=== PATIENT | male | born 1975 | race African-American/Black ===

== ENCOUNTER 2017-02-11 10:55 | Inpatient (IN) | payer OTHER ==
[2017-02-11 12:02] VITALS: BMI 29.7
--- NOTE | 2017-02-11 13:52 | HP ---
CIWA Score - CIWA Score Nausea/Vomitin-Mild Nausea/No Vomiting Muscle Tremors: 4-Moderate,w/Arms Extend Anxiety: 4-Mod. Anxious/Guarded Agitation: 4-Moderately Restless Paroxysmal Sweats: 3 Orientation: 0-Oriented Tacttile Disturbances: 0-None Auditory Disturbances: 0-None Visual Disturbances: 0-None Headache: 0-None Present CIWA-Ar Total Score: 16 Admission ROS BHS - HPI Chief Complaint: Withdrawal sx. Allergies/Adverse Reactions: Allergies Allergy/AdvReac Type Severity Reaction Status Date / Time No Known Allergies Allergy Verified 02/11/17 11:29 History of Present Illness: 41 y/o man with a long hx. of alcoholism is admitted for detox. Pt. has been in previous detox,denies significant sobriety. Exam Limitations: No Limitations - Ebola screening Have you traveled outside of the country in the last 21 days: No Have you had contact with anyone from an Ebola affected area: No Have you been sick,other than usual withdrawal symptoms: No Do you have a fever: No - Review of Systems Constitutional: Diaphoresis EENT: reports: No Symptoms Reported Respiratory: reports: No Symptoms reported Cardiac: reports: No Symptoms Reported GI: reports: Nausea, Abdominal cramping : reports: No Symptoms Reported Musculoskeletal: reports: Joint Pain Integumentary: reports: Sweating Neuro: reports: Tremors Endocrine: reports: No Symptoms Reported Hematology: reports: No Symptoms Reported Psychiatric: reports: No Sypmtoms Reported Other Systems: Reviewed and Negative Patient History - Patient Medical History Hx Anemia: No Hx Asthma: No Hx Chronic Obstructive Pulmonary Disease (COPD): No Hx Cancer: No Hx Cardiac Disorders: No Hx Congestive Heart Failure: No Hx Hypertension: Yes (nifedepine 30mg,asa 81mg) Hx Hypercholesterolemia: No Hx Pacemaker: No HX Cerebrovascular Accident: No Hx Seizures: No Hx Dementia: No Hx Diabetes: No Hx Gastrointestinal Disorders: No Hx Liver Disease: No Hx Genitourinary Disorders: No Hx Sexually Transmitted Disorders: No Hx Renal Disease (ESRD): No Hx Thyroid Disease: No Hx Human Immunodeficiency Virus (HIV): No Hx Hepatitis C: No Hx Depression: Yes Hx Suicide Attempt: No Hx Bipolar Disorder: No Hx Schizophrenia: No - Patient Surgical History Past Surgical History: Yes Hx Neurologic Surgery: Yes (brain aneurysm sx.) Hx Cataract Extraction: No Hx Cardiac Surgery: No Hx Lung Surgery: No Hx Breast Surgery: No Hx Breast Biopsy: No Hx Abdominal Surgery: No Hx Appendectomy: No Hx Cholecystectomy: No Hx Genitourinary Surgery: No Hx Section: No Hx Orthopedic Surgery: No Other Surgical History: CRANIAL PLASTY Anesthesia Reaction: No - PPD History Previous Implant?: Yes Documented Results: Positive w/o proof PPD to be Administered?: No - Smoking Cessation Smoking history: Current every day smoker Have you smoked in the past 12 months: Yes Aproximately how many cigarettes per day: 5 Hx Chewing Tobacco Use: No Initiated information on smoking cessation: Yes 'Breaking Loose' booklet given: 02/11/17 - Substance & Tx. History Hx Alcohol Use: Yes Hx Substance Use: Yes Substance Use Type: Alcohol, Cocaine Hx Substance Use Treatment: Yes ([facility] in 06/2016) - Substances Abused Alcohol Route: Oral Frequency: Daily Amount used: LIQUOR- 3 PINTS, BEER- 1 SIX PACK Age of first use: 17 Date of Last Use: 02/10/17 Crack Route: Smoking Frequency: Daily Amount used: $60 Age of first use: 33 Date of Last Use: 02/10/17 Family Disease History - Family Disease History Family Disease History: Diabetes: Mother (HTN,Breast), Heart Disease: Mother, CA : Mother, Other: Father (CVA) Admission Physical Exam S - Vital Signs Vital Signs: Vital Signs - 24 hr 02/11/17 11:57 Temperature 96.8 F L Pulse Rate 72 Respiratory 20 Rate Blood Pressure 141/95 - Physical General Appearance: Yes: Tremorous, Irritable, Sweating, Anxious HEENTM: Yes: Within Normal Limits Respiratory: Yes: Chest Non-Tender, Lungs Clear, Normal Breath Sounds Neck: Yes: Supple Breast: Yes: Breast Exam Deferred Cardiology: Yes: Regular Rhythm, Regular Rate, S1, S2 Abdominal: Yes: Normal Bowel Sounds, Non Tender, Soft Genitourinary: Yes: Within Normal Limits Back: Yes: Within Normal Limits Musculoskeletal: Yes: Within Normal Limits Extremities: Yes: Tremors Neurological: Yes: Fully Oriented, Alert Integumentary: Yes: Diaphoresis Lymphatic: Yes: Within Normal Limits - Diagnostic (1) Alcohol dependence with uncomplicated withdrawal Current Visit: Yes Status: Acute (2) Cannabis dependence, uncomplicated Current Visit: Yes Status: Acute (3) Cocaine dependence, uncomplicated Current Visit: Yes Status: Acute Cleared for Admission [facility] - Detox or Rehab [facility] Level of Care: Medically Managed Detox Regimen/Protocol: Librium [facility] Breath Alcohol Content Breath Alcohol Content: 0 Urine Drug Screen - Results Drug Screen Negative: No Urine Drug Screen Results: HEMA-Cocaine, BZO-Benzodiazepines
[2017-02-11] MEDS ORDERED: MENTHOL/PHENOL 1 EACH UD MM PRN (13:58)
[2017-02-11] MEDS ORDERED: guaiFENesin/D-METHORPHAN HB 10 ML UNIT-DOSE CUPS PO PRN (13:58)
[2017-02-11] MEDS ORDERED: NICOTINE POLACRILEX 2 MG GUM BC PRN (13:58)
[2017-02-11] MEDS ORDERED: MAGNESIUM CITRATE 300 ML BOTTLE PO PRN (13:58)
[2017-02-11] MEDS ORDERED: MAGNESIUM HYDROX 2400MG/30ML ORAL SUSPENSION 30 ML CUP PO PRN (13:58)
[2017-02-11] MEDS ORDERED: chlordiazePOXIDE HCL 25 MG CAPSULE PO PRN (13:58)
[2017-02-11] MEDS ORDERED: chlordiazePOXIDE HCL 25 MG CAPSULE PO ONE (13:58)
[2017-02-11] MEDS ORDERED: MAG HYDROX/AL HYDROX/SIMETH 30 ML UNIT-DOSE CUP PO PRN (13:58)
[2017-02-11] MEDS ORDERED: P-EPHED 60MG/TRIPROLIDI 2.5MG TABLET PO PRN (13:58)
[2017-02-11] MEDS ORDERED: ACETAMINOPHEN 325 MG TABLET (FP) PO PRN (13:58)
[2017-02-11] MEDS ORDERED: diphenhydrAMINE HCL 50 MG CAPSULE PO PRN (13:58)
[2017-02-11] MEDS ORDERED: LOPERAMIDE HCL 2 MG CAPSULE PO PRN (13:58)
[2017-02-11] MEDS: IBUPROFEN 400 MG TABLET (FP) PO PRN ×2 (15:31→22:43)
[2017-02-11] MEDS: NIFEdipine E.R. 30 MG TABLET (FP) PO SCH (15:31)
[2017-02-11] MEDS: NICOTINE 14 MG/24 HOURS TOPICAL PATCH TD SCH (15:32)
[2017-02-11] MEDS: chlordiazePOXIDE HCL 25 MG CAPSULE PO SCH ×2 (17:26→22:42)
[2017-02-11 18:17] LABS: URINE APPEARANCE CLEAR; URINE BILIRUBIN NEGATIVE (NEGATIVE); URINE BLOOD NEGATIVE (NEGATIVE); URINE COLOR LTYELLOW; URINE GLUCOSE (UA) NEGATIVE (NEGATIVE); URINE KETONE NEGATIVE (NEGATIVE); URINE LEUK ESTERASE NEGATIVE (NEGATIVE); URINE NITRITE NEGATIVE (NEGATIVE); URINE PROTEIN NEGATIVE (NEGATIVE); URINE UROBILINOGEN NEGATIVE mg/dL (0.2-1.0)
[2017-02-11] MEDS: THIAMINE HCL 100 MG TABLET (FP) PO SCH (22:42)
[2017-02-11] MEDS: hydrOXYzine PAMOATE 50 MG CAPSULE (FP) PO PRN (22:43)
[2017-02-12] MEDS: IBUPROFEN 400 MG TABLET (FP) PO PRN (05:50)
[2017-02-12] MEDS: chlordiazePOXIDE HCL 25 MG CAPSULE PO SCH ×4 (05:50→22:50)
[2017-02-12 10:10] LABS: MCH 29.2 pg (25.7-33.7); MCHC 32.9 g/dl (32.0-35.9); MEAN CELL VOLUME 88.8 fl (80-96); MEAN PLT VOLUME 8.2 fl (7.5-11.1); PLATELET COUNT 311 K/MM3 (134-434); RDW 14.7 % (11.9-15.9); WHITE BLOOD COUNT 4.1 K/mm3 (4.0-10.0)
[2017-02-12 10:33] LABS: ALBUMIN 3.2 g/dl (3.4-5.0); ALK PHOS 72 U/L (45-117); ANION GAP 8 (8-16); BILIRUBIN,TOTAL 0.3 mg/dL (0.2-1.0); CALCIUM 8.6 mg/dL (8.5-10.1); CO2 27 mmol/L (21-32); CREATININE 0.9 mg/dL (0.7-1.3); GLUCOSE,RANDOM 104 mg/dL (74-106); SGOT/AST 28 U/L (15-37); SGPT/ALT 35 U/L (12-78); TOT PROT 6.8 g/dl (6.4-8.2)
[2017-02-12] MEDS: NIFEdipine E.R. 30 MG TABLET (FP) PO SCH (10:50)
[2017-02-12] MEDS: PRENATAL VITAMINS W/ FOLIC ACID TABLET (FP) PO SCH (10:50)
[2017-02-12] MEDS: NICOTINE 14 MG/24 HOURS TOPICAL PATCH TD SCH (10:51)
--- NOTE | 2017-02-12 11:37 | PN ---
BHS CIWA - CIWA Score Nausea/Vomitin Muscle Tremors: 4-Moderate,w/Arms Extend Anxiety: 4-Mod. Anxious/Guarded Agitation: 4-Moderately Restless Paroxysmal Sweats: 3 Orientation: 0-Oriented Tacttile Disturbances: 1-Very Mild Itch/Numbness Auditory Disturbances: 0-None Visual Disturbances: 0-None Headache: 1-Very Mild CIWA-Ar Total Score: 20 BHS Progress Note (SOAP) Subjective: nausea, sweats, interrupted sleep, anxiety, tremors Objective: 02/12/17 11:37 Vital Signs - 8 hr 02/12/17 02/12/17 02/12/17 03:43 06:36 09:38 Temperature 97.1 F L 97.5 F L Pulse Rate 79 72 Respiratory 18 18 18 Rate Blood Pressure 148/90 131/77 Laboratory Tests 02/11/17 02/12/17 02/12/17 15:59 07:00 07:00 WBC 4.1 RBC 4.09 Hgb 11.9 Hct 36.3 MCV 88.8 MCH 29.2 MCHC 32.9 RDW 14.7 Plt Count 311 MPV 8.2 Sodium 141 Potassium 3.8 Chloride 106 Carbon Dioxide 27 Anion Gap 8 BUN 13 Creatinine 0.9 Creat Clearance w eGFR > 60 Random Glucose 104 Calcium 8.6 Total Bilirubin 0.3 AST 28 ALT 35 Alkaline Phosphatase 72 Total Protein 6.8 Albumin 3.2 L Urine Color Ltyellow Urine Appearance Clear Urine pH 7.0 Ur Specific [place] 1.020 Urine Protein Negative Urine Glucose (UA) Negative Urine Ketones Negative Urine Blood Negative Urine Nitrite Negative Urine Bilirubin Negative Urine Urobilinogen Negative Ur Leukocyte Esterase Negative Assessment: 02/12/17 11:37 withdrawal sx Plan: cont detox
--- NOTE | 2017-02-12 17:12 | CONSULT ---
[facility] Psychiatric Consult - Data Date of interview: 02/12/17 Admission source: [facility] Identifying data: First admission to [facility] for this 41 y/o [place]-born male seeking detox treatment on for alcohol and cocaine dependence.Patient is single,a father of two,domiciled,unemployed and supported on SSI benefits. Substance Abuse History: Confirmed by patient. Smoking Cessation. Smoking history: Current every day smoker. Have you smoked in the past 12 months: Yes. Aproximately how many cigarettes per day: 5. Hx Chewing Tobacco Use: No. Initiated information on smoking cessation: Yes. 'Breaking Loose' booklet given : 02/11/17. - Substance & Tx. History. Hx Alcohol Use: Yes. Hx Substance Use : Yes. Substance Use Type: Alcohol, Cocaine. Hx Substance Use Treatment: Yes ( [facility] in 06/2016). - Substances Abused. Alcohol. Route: Oral. Frequency: Daily. Amount used: LIQUOR- 3 PINTS, BEER- 1 SIX PACK. Age of first use: 17. Date of Last Use: 02/10/17. Crack. Route: Smoking. Frequency: Daily. Amount used: $60. Age of first use: 33. Date of Last Use: 02/10/17 Medical History: History of neurosurgery for brain aneurysm and cranial plasty.Hypertension. Psychiatric History: Patient admits to one psychiatric hospitalization at a facility in [place].Diagnosed with MDD.Prescribed zoloft 100 mg/day.Dropped out of OPD care " a while back " ,which translates into a two month period of non- adherence.Mr Fontana denies history of suicide attempts. Physical/Sexual Abuse/Trauma History: No history of abuse. Additional Comment: Urine Drug Screen Results: HEMA-Cocaine, BZO- Benzodiazepines.Noted. Mental Status Exam - Mental Status Exam Alert and Oriented to: Time, Place, Person Cognitive Function: Good Patient Appearance: Well Groomed (right hand in a bandage) Mood: Hopeful, Euthymic Affect: Appropriate, Normal Range Patient Behavior: Appropriate (friendly), Cooperative Speech Pattern: Clear, Appropriate (bilingual : creole and citizen of [place] fluent) Voice Loudness: Normal Thought Process: Intact, Goal Oriented Thought Disorder: Not Present Hallucinations: Denies Suicidal Ideation: Denies Homicidal Ideation: Denies Insight/Judgement: Poor Sleep: Well Appetite: Good Muscle strength/Tone: Normal Gait/Station: Normal Psychiatric Findings - Problem List ([place] 1, 2,3) (1) Alcohol dependence with uncomplicated withdrawal Current Visit: Yes Status: Acute (2) Cannabis dependence, uncomplicated Current Visit: Yes Status: Acute (3) Cocaine dependence, uncomplicated Current Visit: Yes Status: Acute (4) Substance induced mood disorder Current Visit: Yes Status: Acute (5) MDD (major depressive disorder) Current Visit: Yes Status: Acute Comment: History.Non compliant with medications. - Initial Treatment Plan Initial Treatment Plan: Psychoeducation.Detoxification in progress.Patient requests to get back on zoloft 100 mg po daily.Ordered.Side effects/benefits discussed with the patient.He agrees with this careplan.Observation.
[2017-02-12] MEDS: THIAMINE HCL 100 MG TABLET (FP) PO SCH (22:50)
[2017-02-12] MEDS: hydrOXYzine PAMOATE 50 MG CAPSULE (FP) PO PRN (22:51)
--- NOTE | 2017-02-12 23:18 | EKG ---
Test Reason : Blood Pressure : / mmHG Vent. Rate : 069 BPM Atrial Rate : 069 BPM P-R Int : 146 ms QRS Dur : 092 ms QT Int : 402 ms P-R-T Axes : 042 015 019 degrees QTc Int : 430 ms NORMAL SINUS RHYTHM MINIMAL VOLTAGE CRITERIA FOR LVH, MAY BE NORMAL VARIANT BORDERLINE ECG NO PREVIOUS ECGS AVAILABLE Confirmed by RENY PRINGLE MD ([id number]) on 02/12/2017 11:17:41 PM Referred By: Confirmed By:RENY PRINGLE MD
[2017-02-13] MEDS: chlordiazePOXIDE HCL 25 MG CAPSULE PO SCH ×2 (06:03→10:36)
[2017-02-13] MEDS: IBUPROFEN 400 MG TABLET (FP) PO PRN ×2 (06:04→17:19)
[2017-02-13] MEDS: PRENATAL VITAMINS W/ FOLIC ACID TABLET (FP) PO SCH (10:36)
[2017-02-13] MEDS: NIFEdipine E.R. 30 MG TABLET (FP) PO SCH (10:36)
[2017-02-13] MEDS: SERTRALINE HCL 50 MG TABLET (FP) PO SCH (10:36)
[2017-02-13] MEDS: NICOTINE 14 MG/24 HOURS TOPICAL PATCH TD SCH (10:36)
--- NOTE | 2017-02-13 13:40 | PN ---
S CIWA - CIWA Score Nausea/Vomitin Muscle Tremors: None Anxiety: 2 Agitation: 2 Paroxysmal Sweats: 3 Orientation: 2-Disoriented Date<2 days Tacttile Disturbances: 2-Mild Itch/Numbness/Burn Auditory Disturbances: 0-None Visual Disturbances: 3-Moderate Sensitivity Headache: 0-None Present CIWA-Ar Total Score: 16 BHS Progress Note (SOAP) Subjective: Sweating, Anxious. Objective: PT. A & O X 2 (DISORIENTED ABOUT DAY /DATE). NO ACUTE DISTRESS. 02/13/17 13:38 Vital Signs Temperature 97.6 F 02/13/17 09:28 Pulse Rate 69 02/13/17 09:28 Respiratory Rate 18 02/13/17 09:28 Blood Pressure 129/82 02/13/17 09:28 O2 Sat by Pulse Oximetry (%) Laboratory Tests 02/11/17 02/12/17 02/12/17 15:59 07:00 07:00 WBC 4.1 RBC 4.09 Hgb 11.9 Hct 36.3 MCV 88.8 MCH 29.2 MCHC 32.9 RDW 14.7 Plt Count 311 MPV 8.2 Sodium 141 Potassium 3.8 Chloride 106 Carbon Dioxide 27 Anion Gap 8 BUN 13 Creatinine 0.9 Creat Clearance w eGFR > 60 Random Glucose 104 Calcium 8.6 Total Bilirubin 0.3 AST 28 ALT 35 Alkaline Phosphatase 72 Total Protein 6.8 Albumin 3.2 L Urine Color Ltyellow Urine Appearance Clear Urine pH 7.0 Ur Specific [place] 1.020 Urine Protein Negative Urine Glucose (UA) Negative Urine Ketones Negative Urine Blood Negative Urine Nitrite Negative Urine Bilirubin Negative Urine Urobilinogen Negative Ur Leukocyte Esterase Negative RPR Titer 02/12/17 07:00 WBC RBC Hgb Hct MCV MCH MCHC RDW Plt Count MPV Sodium Potassium Chloride Carbon Dioxide Anion Gap BUN Creatinine Creat Clearance w eGFR Random Glucose Calcium Total Bilirubin AST ALT Alkaline Phosphatase Total Protein Albumin Urine Color Urine Appearance Urine pH Ur Specific [place] Urine Protein Urine Glucose (UA) Urine Ketones Urine Blood Urine Nitrite Urine Bilirubin Urine Urobilinogen Ur Leukocyte Esterase RPR Titer Nonreactive LABS NOTED. Assessment: 02/13/17 13:39 WITHDRAWAL SYMPTOMS. Plan: CONTINUE DETOX.
[2017-02-13] MEDS: chlordiazePOXIDE 5 MG CAPSULE PO SCH ×2 (17:17→22:41)
[2017-02-13] MEDS: THIAMINE HCL 100 MG TABLET (FP) PO SCH (22:41)
[2017-02-13] MEDS: hydrOXYzine PAMOATE 50 MG CAPSULE (FP) PO PRN (22:42)
[2017-02-14] MEDS: chlordiazePOXIDE 5 MG CAPSULE PO SCH ×2 (06:01→10:36)
[2017-02-14] MEDS: IBUPROFEN 400 MG TABLET (FP) PO PRN (06:03)
[2017-02-14] MEDS: NIFEdipine E.R. 30 MG TABLET (FP) PO SCH (10:36)
[2017-02-14] MEDS: SERTRALINE HCL 50 MG TABLET (FP) PO SCH (10:36)
[2017-02-14] MEDS: NICOTINE 14 MG/24 HOURS TOPICAL PATCH TD SCH (10:36)
[2017-02-14] MEDS: PRENATAL VITAMINS W/ FOLIC ACID TABLET (FP) PO SCH (10:36)
--- NOTE | 2017-02-14 13:49 | PN ---
BHS Progress Note (SOAP) Subjective: Sweating, Body Aches. Objective: PT. A & O X 3, OBSERVED AMBULATING ON UNIT. NO ACUTE DISTRESS. PT. DENIES CHEST PAIN. 02/14/17 13:47 Vital Signs Temperature 97.4 F L 02/14/17 09:57 Pulse Rate 70 02/14/17 09:57 Respiratory Rate 20 02/14/17 09:57 Blood Pressure 134/86 02/14/17 09:57 O2 Sat by Pulse Oximetry (%) Laboratory Tests 02/11/17 02/12/17 02/12/17 15:59 07:00 07:00 WBC 4.1 RBC 4.09 Hgb 11.9 Hct 36.3 MCV 88.8 MCH 29.2 MCHC 32.9 RDW 14.7 Plt Count 311 MPV 8.2 Sodium 141 Potassium 3.8 Chloride 106 Carbon Dioxide 27 Anion Gap 8 BUN 13 Creatinine 0.9 Creat Clearance w eGFR > 60 Random Glucose 104 Calcium 8.6 Total Bilirubin 0.3 AST 28 ALT 35 Alkaline Phosphatase 72 Total Protein 6.8 Albumin 3.2 L Urine Color Ltyellow Urine Appearance Clear Urine pH 7.0 Ur Specific [place] 1.020 Urine Protein Negative Urine Glucose (UA) Negative Urine Ketones Negative Urine Blood Negative Urine Nitrite Negative Urine Bilirubin Negative Urine Urobilinogen Negative Ur Leukocyte Esterase Negative RPR Titer 02/12/17 07:00 WBC RBC Hgb Hct MCV MCH MCHC RDW Plt Count MPV Sodium Potassium Chloride Carbon Dioxide Anion Gap BUN Creatinine Creat Clearance w eGFR Random Glucose Calcium Total Bilirubin AST ALT Alkaline Phosphatase Total Protein Albumin Urine Color Urine Appearance Urine pH Ur Specific [place] Urine Protein Urine Glucose (UA) Urine Ketones Urine Blood Urine Nitrite Urine Bilirubin Urine Urobilinogen Ur Leukocyte Esterase RPR Titer Nonreactive LABS NOTED. Assessment: 02/14/17 13:48 WITHDRAWAL SYMPTOMS. Plan: CONTINUE DETOX.
[2017-02-14] MEDS: chlordiazePOXIDE HCL 10 MG CAPSULE PO SCH ×2 (17:15→22:40)
[2017-02-14] MEDS: THIAMINE HCL 100 MG TABLET (FP) PO SCH (22:40)
[2017-02-14] MEDS: hydrOXYzine PAMOATE 50 MG CAPSULE (FP) PO PRN (22:41)
[2017-02-15] MEDS: chlordiazePOXIDE HCL 10 MG CAPSULE PO SCH (05:51)
[2017-02-15] MEDS: IBUPROFEN 400 MG TABLET (FP) PO PRN (05:51)
[2017-02-15 08:39] VITALS: BP 125/86; PULSE 68; TEMP 97.2
--- NOTE | 2017-02-15 15:49 | DS ---
[facility] Detox Discharge Summary Admission Date: 02/11/17 Discharge Date: 02/15/17 - History Present History: Alcohol Dependence, Cannabis Dependence, Cocaine Dependence Additional Comments: PATIENT MOVING TO [place] IN A FEW DAYS. PATIENT ADVISED TO CONSIDER LOCAL 12- STEP / NA / AA OUTPATIENT SUPPORT GROUPS IN AREA TO WHICH HE IS MOVING FOR AFTERCARE. PATIENT WAS DISCHARGED FROM DETOX UNIT IN STABLE MEDICAL CONDITION. Pertinent Past History: Depression, HTN. - Physical Exam Results Vital Signs: Vital Signs Temperature 97.2 F L 02/15/17 05:00 Pulse Rate 68 02/15/17 05:00 Respiratory Rate 18 02/15/17 05:00 Blood Pressure 125/86 02/15/17 05:00 O2 Sat by Pulse Oximetry (%) Pertinent Admission Physical Exam Findings: WITHDRAWAL SYMPTOMS. Laboratory Tests 02/11/17 02/12/17 02/12/17 15:59 07:00 07:00 WBC 4.1 RBC 4.09 Hgb 11.9 Hct 36.3 MCV 88.8 MCH 29.2 MCHC 32.9 RDW 14.7 Plt Count 311 MPV 8.2 Sodium 141 Potassium 3.8 Chloride 106 Carbon Dioxide 27 Anion Gap 8 BUN 13 Creatinine 0.9 Creat Clearance w eGFR > 60 Random Glucose 104 Calcium 8.6 Total Bilirubin 0.3 AST 28 ALT 35 Alkaline Phosphatase 72 Total Protein 6.8 Albumin 3.2 L Urine Color Ltyellow Urine Appearance Clear Urine pH 7.0 Ur Specific [place] 1.020 Urine Protein Negative Urine Glucose (UA) Negative Urine Ketones Negative Urine Blood Negative Urine Nitrite Negative Urine Bilirubin Negative Urine Urobilinogen Negative Ur Leukocyte Esterase Negative RPR Titer 02/12/17 07:00 WBC RBC Hgb Hct MCV MCH MCHC RDW Plt Count MPV Sodium Potassium Chloride Carbon Dioxide Anion Gap BUN Creatinine Creat Clearance w eGFR Random Glucose Calcium Total Bilirubin AST ALT Alkaline Phosphatase Total Protein Albumin Urine Color Urine Appearance Urine pH Ur Specific [place] Urine Protein Urine Glucose (UA) Urine Ketones Urine Blood Urine Nitrite Urine Bilirubin Urine Urobilinogen Ur Leukocyte Esterase RPR Titer Nonreactive LABS NOTED. - Treatment Hospital Course: Detox Protocol Followed, Detoxed Safely, Responded well, Discharged Condition Good - Medication Discharge Medications: Ambulatory Orders Nifedipine [Afeditab Cr] 30 mg PO DAILY 02/11/17 Sertraline HCl [Zoloft] 100 mg PO DAILY 02/11/17 Sertraline HCl [Zoloft] 100 mg PO DAILY #30 tablet 02/12/17 - Diagnosis (1) Alcohol dependence with uncomplicated withdrawal Status: Acute (2) Cannabis dependence, uncomplicated Status: Acute (3) Cocaine dependence, uncomplicated Status: Acute (4) MDD (major depressive disorder) Status: Acute Qualifiers: Major depression recurrence: recurrent Active/Remission status: remission status unspecified Qualified Code(s): F33.9 - Major depressive disorder, recurrent, unspecified (5) Substance induced mood disorder Status: Acute - AMA Did Patient Leave Against Medical Advice: No
== END 2017-02-15 08:54 | disposition home or self-care (01) | DRG 774 ==
LOC: YASAS 10:55 → Y3N 12:44
PROVIDERS: ADMIT Internal Medicine; ATTEND Internal Medicine Addiction Medicine
PROC: HZ2ZZZZ Detoxification Services for Substance Abuse Treatment (ICD-10-PCS; principal; 2017-02-11)
DX: F10.230 Alcohol dependence with withdrawal, uncomplicated (principal); F14.20 Cocaine dependence, uncomplicated; F12.20 Cannabis dependence, uncomplicated; F19.24 Other psychoactive substance dependence with psychoactive substance-induced mood disorder; F33.9 Major depressive disorder, recurrent, unspecified
CPT/HCPCS: 36415; 71020-TC; 80053; 81003; 85027; 86593; 93005; 93010

== ENCOUNTER 2018-07-16 15:39 | Inpatient (IN) | payer OTHER ==
[2018-07-16 17:06] VITALS: BMI 29.1
--- NOTE | 2018-07-16 19:45 | HP ---
CIWA Score Nausea/Vomitin-No Nausea/No Vomiting Muscle Tremors: 2 Anxiety: 4-Mod. Anxious/Guarded Agitation: 4-Moderately Restless Paroxysmal Sweats: No Perspiration Orientation: 0-Oriented Tacttile Disturbances: 0-None Auditory Disturbances: 0-None Visual Disturbances: 0-None Headache: 0-None Present CIWA-Ar Total Score: 10 - Admission Criteria [facility] Guidelines: Admission for Medically Managed Detox: Requires at least one of the followin. CIWA greater than 12 2. Seizures within the past 24 hours 3. Delirium tremens within the past 24 hours 4. Hallucinations within the past 24 hours 5. Acute intervention needed for co occurring medical disorder 6. Acute intervention needed for co occurring psychiatric disorder 7. Severe withdrawal that cannot be handled at a lower level of care (continued vomiting, continued diarrhea, abnormal vital signs) requiring intravenous medication and/or fluids 8. Patient presents the following: Acute intervention needed for co-occurring med or psych disorder Admission Criteria Met: Admission criteria met Admission ROS [facility] Allergies/Adverse Reactions: Allergies Allergy/AdvReac Type Severity Reaction Status Date / Time No Known Allergies Allergy Verified 02/11/17 11:29 History of Present Illness: patient here requesting detox from etoh use , reports 3 pints/day vodka , first age of use 18 , progressively increased since college , sober in 1999 for a short time, prior detox at this facility > 1 yr ago. Latest use yesterday , denies blackouts, seizures, falls while intoxicated, + DUI/ DWI x 2 most recently 7 years ago in personal car . 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 xanax : since age 37 , currently 2 mg x 2 , denies seizures cocaine : crack cocaine 50-60 $ /day tobacco : 4-5 cigs/ day cannabis : occasional use PCP : in the past denies other illicits PMHX : claims intermittent HTN " my BP goes up sometimes " , anosmia , reports INH tx while incarcerated 10 years ago for DUI . PSHx : left cranioplasty 4 years ago 2/2 brain aneurysm [facility] has q 6 mo visits , R ACL basketball injury 5 years ago PSych : denies meds : denies SHx : homeless , denies current legal issues , 2 children in [place] Exam Limitations: No Limitations - Ebola screening Have you traveled outside of the country in the last 21 days: No Have you had contact with anyone from an Ebola affected area: No Have you been sick,other than usual withdrawal symptoms: No - Review of Systems Constitutional: See HPI EENT: reports: Other (denies vision loss , denies dysphagia) Respiratory: reports: No Symptoms reported Cardiac: reports: No Symptoms Reported GI: reports: No Symptoms Reported : reports: No Symptoms Reported Musculoskeletal: reports: Joint Pain (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 , construction)) Integumentary: reports: Other (surgical scar , abrasion - from today jumped over a fence , claims latest tetanus 1 yr ago .) Neuro: reports: See HPI, Pre-Existing Deficit, Other (anosmia) Endocrine: reports: No Symptoms Reported Psychiatric: reports: Orientated x3, Agitated, Anxious Patient History - Patient Medical History Hx Anemia: No Hx Asthma: No Hx Chronic Obstructive Pulmonary Disease (COPD): No Hx Cancer: No Hx Cardiac Disorders: No Hx Congestive Heart Failure: No Hx Hypertension: Yes (nifedepine 30mg,asa 81mg) Hx Hypercholesterolemia: No Hx Pacemaker: No HX Cerebrovascular Accident: No Hx Seizures: No Hx Dementia: No Hx Diabetes: No Hx Gastrointestinal Disorders: No Hx Liver Disease: No Hx Genitourinary Disorders: No Hx Sexually Transmitted Disorders: No Hx Renal Disease (ESRD): No Hx Thyroid Disease: No Hx Human Immunodeficiency Virus (HIV): No Hx Hepatitis C: No Hx Depression: Yes Hx Suicide Attempt: No Hx Bipolar Disorder: No Hx Schizophrenia: No - Patient Surgical History Past Surgical History: Yes Hx Neurologic Surgery: Yes (brain aneurysm sx.) Hx Cataract Extraction: No Hx Cardiac Surgery: No Hx Lung Surgery: No Hx Breast Surgery: No Hx Breast Biopsy: No Hx Abdominal Surgery: No Hx Appendectomy: No Hx Cholecystectomy: No Hx Genitourinary Surgery: No Hx Section: No Hx Orthopedic Surgery: No Other Surgical History: CRANIAL PLASTY Anesthesia Reaction: No - Smoking Cessation Smoking history: Current every day smoker Have you smoked in the past 12 months: Yes Aproximately how many cigarettes per day: 5 Hx Chewing Tobacco Use: No Initiated information on smoking cessation: No Family Disease History - Family Disease History Family Disease History: Diabetes: Mother (HTN,Breast), Heart Disease: Mother, CA : Mother, Other: Father (CVA) Admission Physical Exam [facility] - Vital Signs Vital Signs: Vital Signs - 24 hr 07/16/18 17:05 Temperature 98.6 F Pulse Rate 93 H Respiratory 18 Rate Blood Pressure 121/79 - Physical General Appearance: Yes: Mild Distress, Intoxicated, Anxious HEENTM: Yes: EOMI, Hearing grossly Normal, Normocephalic, Normal Voice, Other ( extensive surgical scarring left side from cranioplasty right conjunctival staining - states from ) Respiratory: Yes: Chest Non-Tender, Lungs Clear, Normal Breath Sounds Neck: Yes: No masses,lesions,Nodules, Trachea in good position Cardiology: Yes: Regular Rhythm, Regular Rate, S1, S2, Tachycardia Abdominal: Yes: Normal Bowel Sounds, Non Tender, Soft Genitourinary: Yes: Within Normal Limits Back: Yes: Normal Inspection Musculoskeletal: Yes: full range of Motion, Joint Stiffness (r knee), Other ( limping R LE ( old R knee surgery )) Extremities: Yes: Normal Capillary Refill, Normal Range of Motion Neurological: Yes: Motor Strength 5/5, Sensory Deficit (anosmia) Integumentary: Yes: Other (superficial abrasion posterior left thigh) - Diagnostic (1) Sedative hypnotic or anxiolytic dependence Current Visit: Yes Status: Acute (2) Alcohol dependence with uncomplicated withdrawal Current Visit: No Status: Acute (3) Cocaine dependence, uncomplicated Current Visit: No Status: Chronic (4) Nicotine dependence Current Visit: Yes Status: Chronic Qualifiers: Nicotine product type: cigarettes (5) Cannabis dependence, uncomplicated Current Visit: No Status: Chronic S Breath Alcohol Content Breath Alcohol Content: 0.001 Urine Drug Screen - Results Drug Screen Negative: No Urine Drug Screen Results: HEMA-Cocaine, BZO-Benzodiazepines Inpatient Rehab Admission - Rehab Decision to Admit Inpatient rehab admission?: No
[2018-07-16] MEDS ORDERED: MAGNESIUM HYDROX 2400MG/30ML ORAL SUSPENSION 30 ML CUP PO PRN (19:56)
[2018-07-16] MEDS ORDERED: MENTHOL/PHENOL 1 EACH UD MM PRN (19:56)
[2018-07-16] MEDS ORDERED: MAGNESIUM CITRATE 300 ML BOTTLE PO PRN (19:56)
[2018-07-16] MEDS ORDERED: NICOTINE POLACRILEX 2 MG GUM BC PRN (19:56)
[2018-07-16] MEDS ORDERED: ACETAMINOPHEN 325 MG TABLET (FP) PO PRN (19:56)
[2018-07-16] MEDS ORDERED: diazePAM 5 MG TABLET PO PRN (19:56)
[2018-07-16] MEDS ORDERED: MAG HYDROX/AL HYDROX/SIMETH 30 ML UNIT-DOSE CUP PO PRN (19:56)
[2018-07-16] MEDS ORDERED: cloNIDine HCL 0.1 MG TABLET PO PRN (19:57)
[2018-07-16] MEDS: THIAMINE HCL 100 MG TABLET (FP) PO SCH (22:42)
[2018-07-16] MEDS: diazePAM 5 MG TABLET PO SCH (22:42)
[2018-07-16] MEDS: MELATONIN 5 MG TABLETS PO PRN (22:42)
[2018-07-16] MEDS: BACITRACIN/POLYMYXIN B SULFATE 15 GM TUBE TP SCH (23:36)
[2018-07-17] MEDS: diazePAM 5 MG TABLET PO SCH ×3 (06:52→22:25)
[2018-07-17] MEDS: PRENATAL VITAMINS W/ FOLIC ACID TABLET (FP) PO SCH (10:12)
[2018-07-17] MEDS: BACITRACIN/POLYMYXIN B SULFATE 15 GM TUBE TP SCH ×2 (10:13→22:25)
[2018-07-17 10:21] LABS: ALBUMIN 3.6 g/dl (3.4-5.0); ALK PHOS 63 U/L (45-117); ANION GAP 6 MMOL/L (8-16); BILIRUBIN,TOTAL 0.4 mg/dL (0.2-1); BLOOD UREA NITROGEN 21 mg/dL (7-18); CALCIUM 9.1 mg/dL (8.5-10.1); CHLORIDE 106 mmol/L (98-107); CO2 30 mmol/L (21-32); CREATININE 1.2 mg/dL (0.55-1.3); GLUCOSE,RANDOM 97 mg/dL (74-106); POTASSIUM 4.3 mmol/L (3.5-5.1); SGOT/AST 31 U/L (15-37); SGPT/ALT 39 U/L (13-61); SODIUM 142 mmol/L (136-145); TOT PROT 6.8 g/dl (6.4-8.2)
[2018-07-17 10:41] LABS: HEMATOCRIT 35.6 % (35.4-49); HEMOGLOBIN 11.7 GM/dL (11.7-16.9); MCH 29.2 pg (25.7-33.7); MEAN CELL VOLUME 88.5 fl (80-96); MEAN PLT VOLUME 8.1 fl (7.5-11.1); PLATELET COUNT 213 K/MM3 (134-434); RBC 4.02 M/mm3 (4.00-5.60); WHITE BLOOD COUNT 3.5 K/mm3 (4.0-10.0)
--- NOTE | 2018-07-17 10:49 | PN ---
[facility] CIWA - CIWA Score Nausea/Vomitin-No Nausea/No Vomiting Muscle Tremors: 3 Anxiety: 3 Agitation: 3 Paroxysmal Sweats: 2 Orientation: 0-Oriented Tacttile Disturbances: 0-None Auditory Disturbances: 0-None Visual Disturbances: 0-None Headache: 0-None Present CIWA-Ar Total Score: 11 [facility] Progress Note (SOAP) Subjective: sweats agitation feeling better than yesterday Objective: 07/17/18 10:48 Vital Signs Temperature 97.7 F 07/17/18 09:56 Pulse Rate 87 07/17/18 09:56 Respiratory Rate 18 07/17/18 09:56 Blood Pressure 122/70 07/17/18 09:56 O2 Sat by Pulse Oximetry (%) Laboratory Tests 07/17/18 07/17/18 07:00 07:00 WBC 3.5 L RBC 4.02 Hgb 11.7 Hct 35.6 MCV 88.5 MCH 29.2 MCHC 33.0 RDW 17.0 H Plt Count 213 D MPV 8.1 Sodium 142 Potassium 4.3 Chloride 106 Carbon Dioxide 30 Anion Gap 6 L BUN 21 H Creatinine 1.2 Creat Clearance w eGFR > 60 Random Glucose 97 Calcium 9.1 Total Bilirubin 0.4 AST 31 ALT 39 Alkaline Phosphatase 63 Total Protein 6.8 Albumin 3.6 aaox3 ambulating no acute distress Assessment: 07/17/18 10:49 withdrawal sx Plan: continue detox increase fluids
[2018-07-17] MEDS: IBUPROFEN 400 MG TABLET (FP) PO PRN (13:34)
[2018-07-17] MEDS: THIAMINE HCL 100 MG TABLET (FP) PO SCH (22:25)
[2018-07-17] MEDS: MELATONIN 5 MG TABLETS PO PRN (22:25)
[2018-07-18] MEDS: PRENATAL VITAMINS W/ FOLIC ACID TABLET (FP) PO SCH (10:15)
[2018-07-18] MEDS: diazePAM 5 MG TABLET PO SCH ×2 (10:15→22:27)
[2018-07-18] MEDS: BACITRACIN/POLYMYXIN B SULFATE 15 GM TUBE TP SCH ×2 (10:15→22:29)
--- NOTE | 2018-07-18 10:45 | PN ---
[facility] CIWA - CIWA Score Nausea/Vomitin-No Nausea/No Vomiting Muscle Tremors: 3 Anxiety: 2 Agitation: 3 Paroxysmal Sweats: 3 Orientation: 0-Oriented Tacttile Disturbances: 0-None Auditory Disturbances: 0-None Visual Disturbances: 0-None Headache: 0-None Present CIWA-Ar Total Score: 11 S Progress Note (SOAP) Subjective: sweats shakes interrupted sleep body aches Objective: 07/18/18 10:43 Vital Signs Temperature 97.7 F 07/18/18 09:43 Pulse Rate 73 07/18/18 09:43 Respiratory Rate 18 07/18/18 09:43 Blood Pressure 124/77 07/18/18 09:43 O2 Sat by Pulse Oximetry (%) Laboratory Tests 07/17/18 07/17/18 07/17/18 07:00 07:00 07:00 WBC 3.5 L RBC 4.02 Hgb 11.7 Hct 35.6 MCV 88.5 MCH 29.2 MCHC 33.0 RDW 17.0 H Plt Count 213 D MPV 8.1 Sodium 142 Potassium 4.3 Chloride 106 Carbon Dioxide 30 Anion Gap 6 L BUN 21 H Creatinine 1.2 Creat Clearance w eGFR > 60 Random Glucose 97 Calcium 9.1 Total Bilirubin 0.4 AST 31 ALT 39 Alkaline Phosphatase 63 Total Protein 6.8 Albumin 3.6 RPR Titer Nonreactive aaox3 ambulating no acute distress Assessment: 07/18/18 10:43 withdrawal sx Plan: continue detox increase fluids
[2018-07-18] MEDS: IBUPROFEN 400 MG TABLET (FP) PO PRN (11:31)
[2018-07-18] MEDS: MELATONIN 5 MG TABLETS PO PRN (22:27)
[2018-07-18] MEDS: THIAMINE HCL 100 MG TABLET (FP) PO SCH (22:28)
[2018-07-19] MEDS: PRENATAL VITAMINS W/ FOLIC ACID TABLET (FP) PO SCH (10:31)
[2018-07-19] MEDS: diazePAM 5 MG TABLET PO SCH ×2 (10:31→22:20)
--- NOTE | 2018-07-19 11:43 | PN ---
[facility] Progress Note (SOAP) Subjective: feeling much better anxiety Objective: 07/19/18 11:42 Vital Signs Temperature 99.3 F 07/19/18 09:29 Pulse Rate 84 07/19/18 09:29 Respiratory Rate 18 07/19/18 09:29 Blood Pressure 150/98 07/19/18 09:29 O2 Sat by Pulse Oximetry (%) aaox3 ambulating no acute distress Assessment: 07/19/18 11:43 mild withdrawal sx Plan: continue detox increase fluids d/c in am
[2018-07-19] MEDS: BACITRACIN/POLYMYXIN B SULFATE 15 GM TUBE TP SCH ×2 (12:18→22:32)
[2018-07-19] MEDS: THIAMINE HCL 100 MG TABLET (FP) PO SCH (22:20)
[2018-07-19] MEDS: MELATONIN 5 MG TABLETS PO PRN (22:20)
[2018-07-20 08:53] VITALS: BP 118/77; PULSE 74; TEMP 97.7
[2018-07-20] MEDS ORDERED: diazePAM 5 MG TABLET PO SCH (10:00)
--- NOTE | 2018-07-20 14:09 | DS ---
[facility] Detox Discharge Summary Admission Date: 07/16/18 Discharge Date: 07/20/18 - History Present History: Alcohol Dependence Additional Comments: pt successfully completed detox from alcohol. d/w outpt AA meetings and f/u PCP. pt does not need any discharge meds - Physical Exam Results Vital Signs: Vital Signs Temperature 97.7 F 07/20/18 08:52 Pulse Rate 74 07/20/18 08:52 Respiratory Rate 18 07/20/18 08:52 Blood Pressure 118/77 07/20/18 08:52 O2 Sat by Pulse Oximetry (%) - Treatment Hospital Course: Detox Protocol Followed, Detoxed Safely, Responded well, Discharged Condition Good - Medication Discharge Medications: Ambulatory Orders Nifedipine [Afeditab Cr] 30 mg PO DAILY 02/11/17 Sertraline HCl [Zoloft] 100 mg PO DAILY 02/11/17 Sertraline HCl [Zoloft] 100 mg PO DAILY #30 tablet 02/12/17
== END 2018-07-20 09:02 | disposition home or self-care (01) | DRG 774 ==
LOC: YASAS 15:39 → Y6N 20:43
PROVIDERS: ADMIT Surgery; ATTEND Surgery
PROC: HZ2ZZZZ Detoxification Services for Substance Abuse Treatment (ICD-10-PCS; principal; 2018-07-16)
DX: F10.230 Alcohol dependence with withdrawal, uncomplicated (principal); F13.230 Sedative, hypnotic or anxiolytic dependence with withdrawal, uncomplicated; F14.20 Cocaine dependence, uncomplicated; F12.20 Cannabis dependence, uncomplicated; F17.210 Nicotine dependence, cigarettes, uncomplicated; I10 Essential (primary) hypertension
CPT/HCPCS: 36415; 71046-TC-FY; 80053; 85027; 86593; J0735

== ENCOUNTER 2018-09-18 16:02 | Inpatient (IN) | payer OTHER ==
[2018-09-18 18:34] VITALS: BMI 28.7
--- NOTE | 2018-09-18 19:23 | HP ---
CIWA Score Nausea/Vomitin-No Nausea/No Vomiting Muscle Tremors: 3 Anxiety: 3 Agitation: 3 Paroxysmal Sweats: 3 Orientation: 0-Oriented Tacttile Disturbances: 0-None Auditory Disturbances: 0-None Visual Disturbances: 0-None Headache: 0-None Present CIWA-Ar Total Score: 12 - Admission Criteria [facility] Guidelines: Admission for Medically Managed Detox: Requires at least one of the followin. CIWA greater than 12 2. Seizures within the past 24 hours 3. Delirium tremens within the past 24 hours 4. Hallucinations within the past 24 hours 5. Acute intervention needed for co occurring medical disorder 6. Acute intervention needed for co occurring psychiatric disorder 7. Severe withdrawal that cannot be handled at a lower level of care (continued vomiting, continued diarrhea, abnormal vital signs) requiring intravenous medication and/or fluids 8. Admission ROS [facility] Chief Complaint: I am here for detox and go to rehab. Allergies/Adverse Reactions: Allergies Allergy/AdvReac Type Severity Reaction Status Date / Time No Known Allergies Allergy Verified 09/18/18 18:29 History of Present Illness: Pt is a 42yr old male with a long history of alcohol dependence seeking detox for treatment. Pt had a fall a couple of days ago d/t his drinking; pt states he was seen a [facility] for evaluation and was told his head scan was negative. Only an abrasion noted to apply bacitracin or vitamin a&d. Exam Limitations: No Limitations - Ebola screening Have you traveled outside of the country in the last 21 days: No Have you had contact with anyone from an Ebola affected area: No Have you been sick,other than usual withdrawal symptoms: No Do you have a fever: No - Review of Systems Constitutional: Chills, Diaphoresis, Night Sweats EENT: reports: No Symptoms Reported Respiratory: reports: No Symptoms reported Cardiac: reports: No Symptoms Reported GI: reports: Poor Appetite, Poor Fluid Intake : reports: No Symptoms Reported Musculoskeletal: reports: No Symptoms Reported Integumentary: reports: Flushing, Sweating, Other (abrasion to forehead d/t a fall a couple of days ago.) Neuro: reports: Headache, Tingling, Tremors Endocrine: reports: Excessive Sweating, Flushing, Intolerance to Cold, Intolerance to Heat Hematology: reports: No Symptoms Reported Psychiatric: reports: Judgement Intact, Mood/Affect Appropiate, Orientated x3, Agitated, Anxious Other Systems: Reviewed and Negative Patient History - Patient Medical History Hx Anemia: No Hx Asthma: No Hx Chronic Obstructive Pulmonary Disease (COPD): No Hx Cancer: No Hx Cardiac Disorders: No Hx Congestive Heart Failure: No Hx Hypertension: Yes (nifedepine 30mg, asa 81mg) Hx Hypercholesterolemia: No Hx Pacemaker: No HX Cerebrovascular Accident: No Hx Seizures: No Hx Dementia: No Hx Diabetes: No Hx Gastrointestinal Disorders: No Hx Liver Disease: No Hx Genitourinary Disorders: No Hx Sexually Transmitted Disorders: No Hx Renal Disease (ESRD): No Hx Thyroid Disease: No Hx Human Immunodeficiency Virus (HIV): No (negative) Hx Hepatitis C: No (negative) Hx Depression: Yes Hx Suicide Attempt: No Hx Bipolar Disorder: No Hx Schizophrenia: No - Patient Surgical History Past Surgical History: Yes Hx Neurologic Surgery: Yes (brain aneurysm sx.) Hx Cataract Extraction: No Hx Cardiac Surgery: No Hx Lung Surgery: No Hx Breast Surgery: No Hx Breast Biopsy: No Hx Abdominal Surgery: No Hx Appendectomy: No Hx Cholecystectomy: No Hx Genitourinary Surgery: No Hx Section: No Hx Orthopedic Surgery: No Other Surgical History: CRANIAL PLASTY Anesthesia Reaction: No - PPD History Previous Implant?: Yes Documented Results: Positive w/proof Implanted On Prior [facility] Admission?: No Results: - chest xray PPD to be Administered?: No - Reproductive History Patient is a Female of Child Bearing Age (11 -55 yrs old): No - Smoking Cessation Smoking history: Current every day smoker Have you smoked in the past 12 months: Yes Aproximately how many cigarettes per day: 3 Hx Chewing Tobacco Use: No Initiated information on smoking cessation: Yes 'Breaking Loose' booklet given: 09/18/18 - Substance & Tx. History Hx Alcohol Use: Yes Hx Substance Use: Yes Substance Use Type: Alcohol, Cocaine Hx Substance Use Treatment: Yes (last detox [facility] 07/2018) - Substances abused Alcohol Substance route: Oral Frequency: Daily Amount used: 3 PINTS OF VODKA Age of first use: 18 Date of last use: 09/18/18 Crack Substance route: Smoking Frequency: Daily Amount used: $50 Age of first use: 33 Date of last use: 09/17/18 Family Disease History - Family Disease History Family Disease History: Diabetes: Mother (HTN,Breast), Heart Disease: Mother, [place] : Mother, Other: Father (CVA) Admission Physical Exam [facility] - Vital Signs Vital Signs: Vital Signs - 24 hr 09/18/18 18:25 Temperature 99.0 F Pulse Rate 115 H Respiratory 18 Rate Blood Pressure 133/88 - Physical General Appearance: Yes: Appropriately Dressed, Moderate Distress, Tremorous, Irritable, Sweating, Anxious HEENTM: Yes: Normal Voice, Nasal Congestion, Rhinorrhea Respiratory: Yes: Lungs Clear, Normal Breath Sounds, No Respiratory Distress Neck: Yes: No masses,lesions,Nodules Breast: Yes: Within Normal Limits Cardiology: Yes: Regular Rhythm, Regular Rate, S1, S2, Tachycardia Abdominal: Yes: Normal Bowel Sounds Genitourinary: Yes: Within Normal Limits Back: Yes: Normal Inspection Musculoskeletal: Yes: full range of Motion Extremities: Yes: Normal Capillary Refill, Non-Tender, Tremors Neurological: Yes: Fully Oriented, Alert, Normal Response Integumentary: Yes: Normal Color Lymphatic: Yes: Within Normal Limits - Diagnostic (1) Alcohol dependence with uncomplicated withdrawal Current Visit: Yes Status: Chronic (2) MDD (major depressive disorder) Current Visit: No Status: Acute Qualifiers: Major depression recurrence: recurrent Active/Remission status: remission status unspecified Qualified Code(s): F33.9 - Major depressive disorder, recurrent, unspecified Comment: History.Non compliant with medications. (3) Substance induced mood disorder Current Visit: No Status: Acute (4) Cannabis dependence, uncomplicated Current Visit: Yes Status: Chronic (5) Cocaine dependence, uncomplicated Current Visit: Yes Status: Chronic (6) Nicotine dependence Current Visit: Yes Status: Chronic Qualifiers: Nicotine product type: cigarettes Substance use status: uncomplicated Qualified Code(s): F17.210 - Nicotine dependence, cigarettes, uncomplicated (7) Abrasion of forehead Current Visit: Yes Status: Acute Qualifiers: Encounter type: initial encounter Qualified Code(s): S00.81XA - Abrasion of other part of head, initial encounter Comment: pt was seen at [facility] a couple of days ago. tests done no internal injury to head. Pt has an abrasion to apply bacitracin or vitamin a&d Cleared for Admission [facility] - Detox or Rehab [facility] Level of Care: Medically Managed Detox Regimen/Protocol: Librium Breathalyzer - Breathalyzer Breathalyzer: 0 Urine Drug Screen - Test Device Lot number: [id number] Expiration date: 05/03/20 - Control Is test valid?: Yes - Results Drug screen NEGATIVE: No Urine drug screen results: BZO-Benzodiazepines Inpatient Rehab Admission - Rehab Decision to Admit Inpatient rehab admission?: No
[2018-09-18] MEDS ORDERED: BACLOFEN 10 MG TABLET (FP) PO PRN (19:34)
[2018-09-18] MEDS ORDERED: ONDANSETRON *ODT* 4 MG TABLET SL PRN (19:34)
[2018-09-18] MEDS ORDERED: MAGNESIUM CITRATE 300 ML BOTTLE PO PRN (19:34)
[2018-09-18] MEDS ORDERED: ACETAMINOPHEN 325 MG TABLET (FP) PO PRN ×2 (19:34)
[2018-09-18] MEDS ORDERED: DICYCLOMINE HCL 10 MG CAPSULE PO PRN (19:34)
[2018-09-18] MEDS ORDERED: MENTHOL/PHENOL 1 EACH UD MM PRN (19:34)
[2018-09-18] MEDS ORDERED: MAG HYDROX/AL HYDROX/SIMETH 30 ML UNIT-DOSE CUP PO PRN (19:34)
[2018-09-18] MEDS ORDERED: MAGNESIUM HYDROX 2400MG/30ML ORAL SUSPENSION 30 ML CUP PO PRN (19:34)
[2018-09-18] MEDS ORDERED: P-EPHED 60MG/TRIPROLIDI 2.5MG TABLET PO PRN (19:34)
[2018-09-18] MEDS ORDERED: BISMUTH SUBSALICYLATE 524 MG/30 ML UD PO PRN (19:34)
[2018-09-18] MEDS ORDERED: IBUPROFEN 400 MG TABLET (FP) PO PRN (19:34)
[2018-09-18] MEDS ORDERED: chlordiazePOXIDE HCL 25 MG CAPSULE PO PRN (19:34)
[2018-09-18] MEDS ORDERED: chlordiazePOXIDE HCL 25 MG CAPSULE PO ONE (19:34)
[2018-09-18] MEDS ORDERED: hydrOXYzine PAMOATE 25 MG CAPSULE (FP) PO PRN (19:34)
[2018-09-18] MEDS: NIFEdipine E.R. 30 MG TABLET (FP) PO SCH (20:04)
[2018-09-18] MEDS: MELATONIN 5 MG TABLETS PO PRN (22:22)
[2018-09-18] MEDS: THIAMINE HCL 100 MG TABLET (FP) PO SCH (22:22)
[2018-09-18] MEDS: BACITRACIN 0.9 GM PACKET TP SCH (22:22)
[2018-09-18] MEDS: chlordiazePOXIDE HCL 25 MG CAPSULE PO SCH (22:34)
[2018-09-19] MEDS: chlordiazePOXIDE HCL 25 MG CAPSULE PO SCH ×4 (06:19→22:15)
[2018-09-19 10:55] LABS: HEMATOCRIT 34.3 % (35.4-49); HEMOGLOBIN 11.2 GM/dL (11.7-16.9); MCH 28.7 pg (25.7-33.7); MCHC 32.6 g/dl (32.0-35.9); MEAN PLT VOLUME 8.3 fl (7.5-11.1); PLATELET COUNT 223 K/MM3 (134-434); RDW 15.7 % (11.9-15.9); WHITE BLOOD COUNT 4.6 K/mm3 (4.0-10.0)
[2018-09-19] MEDS: NIFEdipine E.R. 30 MG TABLET (FP) PO SCH (10:57)
[2018-09-19] MEDS: PRENATAL VITAMINS W/ FOLIC ACID TABLET (FP) PO SCH (10:57)
[2018-09-19] MEDS: BACITRACIN 0.9 GM PACKET TP SCH ×2 (10:57→22:15)
[2018-09-19] MEDS: NICOTINE 7 MG/24 HOURS TOPICAL PATCH TD SCH (10:58)
--- NOTE | 2018-09-19 12:17 | EKG ---
Test Reason : Blood Pressure : / mmHG Vent. Rate : 103 BPM Atrial Rate : 103 BPM P-R Int : 140 ms QRS Dur : 092 ms QT Int : 346 ms P-R-T Axes : 057 046 063 degrees QTc Int : 453 ms SINUS TACHYCARDIA OTHERWISE NORMAL ECG WHEN COMPARED WITH ECG OF 11-FEB-2017 14:23, VENT. RATE HAS INCREASED BY 34 BPM T WAVE INVERSION NO LONGER EVIDENT IN INFERIOR LEADS NONSPECIFIC T WAVE ABNORMALITY NOW EVIDENT IN LATERAL LEADS Confirmed by ABHISHEK WELLS MD ([id number]) on 09/19/2018 12:16:41 PM Referred By: Confirmed By:ABHISHEK WELLS MD
[2018-09-19 12:20] LABS: ALBUMIN 3.4 g/dl (3.4-5.0); ALK PHOS 105 U/L (45-117); ANION GAP 6 MMOL/L (8-16); BILIRUBIN,TOTAL 0.5 mg/dL (0.2-1); BLOOD UREA NITROGEN 20 mg/dL (7-18); CALCIUM 8.7 mg/dL (8.5-10.1); CHLORIDE 103 mmol/L (98-107); CO2 31 mmol/L (21-32); CREATININE 0.9 mg/dL (0.55-1.3); GLUCOSE,RANDOM 85 mg/dL (74-106); SGOT/AST 62 U/L (15-37); SGPT/ALT 63 U/L (13-61); SODIUM 140 mmol/L (136-145); TOT PROT 6.9 g/dl (6.4-8.2)
--- NOTE | 2018-09-19 13:21 | PN ---
S CIWA - CIWA Score Nausea/Vomitin-No Nausea/No Vomiting Muscle Tremors: 3 Anxiety: 3 Agitation: 0-Normal Activity Paroxysmal Sweats: 3 Orientation: 0-Oriented Tacttile Disturbances: 2-Mild Itch/Numbness/Burn Auditory Disturbances: 0-None Visual Disturbances: 2-Mild Sensitivity Headache: 0-None Present CIWA-Ar Total Score: 13 [facility] Progress Note (SOAP) Subjective: Tremors, Anxious, Sweating. Objective: PATIENT A & O X 2 (UNCERTAIN ABOUT CURRENT DAY / DATE). IN NO ACUTE DISTRESS. 09/19/18 13:23 Vital Signs Temperature 98.1 F 09/19/18 10:44 Pulse Rate 89 09/19/18 10:44 Respiratory Rate 18 09/19/18 10:44 Blood Pressure 127/85 09/19/18 10:44 O2 Sat by Pulse Oximetry (%) Laboratory Tests 09/19/18 09/19/18 09/19/18 07:00 07:00 07:00 WBC 4.6 RBC 3.90 L Hgb 11.2 L Hct 34.3 L MCV 88.0 MCH 28.7 MCHC 32.6 RDW 15.7 Plt Count 223 MPV 8.3 Sodium 140 Potassium 4.0 Chloride 103 Carbon Dioxide 31 Anion Gap 6 L BUN 20 H Creatinine 0.9 Creat Clearance w eGFR 92.54 Random Glucose 85 Calcium 8.7 Total Bilirubin 0.5 AST 62 H ALT 63 H Alkaline Phosphatase 105 Total Protein 6.9 Albumin 3.4 RPR Titer Nonreactive ABS NOTED. Assessment: 09/19/18 13:25 WITHDRAWAL SYMPTOMS. ANEMIA. Plan: CONTINUE DETOX. INCREASE DAILY PO FLUID / WATER INTAKE. PATIENT IS CURRENTLY RECEIVING DAILY MVI CONTAINING B VITAMINS AND IRON WHILE ADMITTED FOR DETOX.
--- NOTE | 2018-09-19 14:52 | CONSULT ---
[facility] Psychiatric Consult - Data Date of interview: 09/19/18 Admission source: Self-referred Identifying data: Mr Fontana is a 42 years old single [place] male, father of 2 children, unemployed on public assistance, homeless seeking detox treatment alcohol and cocaine Substance Abuse History: Report history of alcohol, crack cocaine use. Refer to addiction counseor's summary for further information Medical History: Significant for hypertension, PPD+ and neursurgery for brain aneurysm in 2014. Smokes 3 cigarette daily Psychiatric History: Patient reports that his first psychiatric contact was in 2010 when he was admitted to [facility] in [facility]. Reports that he was diagnosed with depression and started on Zoloft. Claims he was discharged on Zoloft 100 mg/day and referred to mental health clinic. He said that after attending that facility for approximately a year, he was told by the psychiatric that he did not need to continue medication and that his psychiatric symptoms were cocaine-induced. Since then he stopped taking medication till he saw Dr Ruiz on 02/12/17 while in detox in this facility. Dr Ruiz restarted him on Zoloft 100 mg/day at his request. Told curriculum writer that once discharge from this facility on February 15, 2017, he stopped taking medication. He was readmitted to detox in this facility in July 2018 and was not seen by psychiatrist. Denies history of suicide attempt. At present, denies experiencing depressive symptoms but sleeping poorly. Physical/Sexual Abuse/Trauma History: Denies history of emotional, physical or sexual abuse as well as DV relationship. No service Additional Comment: Reports history of 2 previous misdemeanor arrests. No probation currently Mental Status Exam - Mental Status Exam Alert and Oriented to: Time, Place, Person Cognitive Function: Fair Patient Appearance: Well Groomed Mood: Hopeful, Euthymic Patient Behavior: Cooperative Speech Pattern: Clear Voice Loudness: Normal Thought Process: Intact, Goal Oriented Thought Disorder: Not Present Hallucinations: Denies Suicidal Ideation: Denies Homicidal Ideation: Denies Insight/Judgement: Poor Sleep: Poorly Appetite: Good Muscle strength/Tone: Normal Gait/Station: Normal Psychiatric Findings - Problem List ([place] 1, 2,3) (1) Depressive disorder Current Visit: Yes Status: Chronic (2) MDD (major depressive disorder) Current Visit: No Status: Ruled-out Qualifiers: Major depression recurrence: recurrent Active/Remission status: remission status unspecified Qualified Code(s): F33.9 - Major depressive disorder, recurrent, unspecified Comment: History.Non compliant with medications. (3) Substance induced mood disorder Current Visit: No Status: Ruled-out (4) Alcohol dependence with uncomplicated withdrawal Current Visit: Yes Status: Chronic (5) Cocaine dependence, uncomplicated Current Visit: Yes Status: Chronic (6) Nicotine dependence Current Visit: Yes Status: Chronic Qualifiers: Nicotine product type: cigarettes Substance use status: uncomplicated Qualified Code(s): F17.210 - Nicotine dependence, cigarettes, uncomplicated (7) HTN (hypertension) Current Visit: Yes Status: Chronic (8) PPD positive Current Visit: Yes Status: Chronic - Initial Treatment Plan Initial Treatment Plan: 1) Start Melatonin 5 mg po HS prn for insomnia. 2) Continue inpatient detoxification
[2018-09-19] MEDS: THIAMINE HCL 100 MG TABLET (FP) PO SCH (22:15)
[2018-09-19] MEDS: MELATONIN 5 MG TABLETS PO PRN (22:15)
[2018-09-20] MEDS: chlordiazePOXIDE HCL 25 MG CAPSULE PO SCH ×3 (05:55→17:52)
[2018-09-20] MEDS: BACITRACIN 0.9 GM PACKET TP SCH ×2 (10:14→22:37)
[2018-09-20] MEDS: PRENATAL VITAMINS W/ FOLIC ACID TABLET (FP) PO SCH (10:14)
[2018-09-20] MEDS: NICOTINE 7 MG/24 HOURS TOPICAL PATCH TD SCH (10:14)
[2018-09-20] MEDS ORDERED: BENZOCAINE 20 % GEL TUBE MM PRN (11:14)
--- NOTE | 2018-09-20 11:16 | PN ---
[facility] CIWA - CIWA Score Nausea/Vomitin-No Nausea/No Vomiting Muscle Tremors: 2 Anxiety: 3 Agitation: 0-Normal Activity Paroxysmal Sweats: 2 Orientation: 0-Oriented Tacttile Disturbances: 1-Very Mild Itch/Numbness Auditory Disturbances: 0-None Visual Disturbances: 1-Very Mild Sensitivity Headache: 0-None Present CIWA-Ar Total Score: 9 S Progress Note (SOAP) Subjective: anxious, dentalgia, hx of fx jaw with wires placement on 09/03/18, has follow up appointment with primary care provider 10/03/18 Objective: 09/20/18 11:16 Vital Signs Temperature 97.7 F 09/20/18 06:00 Pulse Rate 102 H 09/20/18 06:00 Respiratory Rate 18 09/20/18 06:00 Blood Pressure 137/86 09/20/18 06:00 O2 Sat by Pulse Oximetry (%) Laboratory Last Values WBC 4.6 K/mm3 (4.0-10.0) 09/19/18 07:00 RBC 3.90 M/mm3 (4.00-5.60) L 09/19/18 07:00 Hgb 11.2 GM/dL (11.7-16.9) L 09/19/18 07:00 Hct 34.3 % (35.4-49) L 09/19/18 07:00 MCV 88.0 fl (80-96) 09/19/18 07:00 MCH 28.7 pg (25.7-33.7) 09/19/18 07:00 MCHC 32.6 g/dl (32.0-35.9) 09/19/18 07:00 RDW 15.7 % (11.9-15.9) 09/19/18 07:00 Plt Count 223 K/MM3 (134-434) 09/19/18 07:00 MPV 8.3 fl (7.5-11.1) 09/19/18 07:00 Sodium 140 mmol/L (136-145) 09/19/18 07:00 Potassium 4.0 mmol/L (3.5-5.1) 09/19/18 07:00 Chloride 103 mmol/L (98-107) 09/19/18 07:00 Carbon Dioxide 31 mmol/L (21-32) 09/19/18 07:00 Anion Gap 6 MMOL/L (8-16) L 09/19/18 07:00 BUN 20 mg/dL (7-18) H 09/19/18 07:00 Creatinine 0.9 mg/dL (0.55-1.3) 09/19/18 07:00 Creat Clearance w eGFR 92.54 (>60) 09/19/18 07:00 Random Glucose 85 mg/dL (74-106) 09/19/18 07:00 Calcium 8.7 mg/dL (8.5-10.1) 09/19/18 07:00 Total Bilirubin 0.5 mg/dL (0.2-1) 09/19/18 07:00 AST 62 U/L (15-37) H 09/19/18 07:00 ALT 63 U/L (13-61) H 09/19/18 07:00 Alkaline Phosphatase 105 U/L (45-117) 09/19/18 07:00 Total Protein 6.9 g/dl (6.4-8.2) 09/19/18 07:00 Albumin 3.4 g/dl (3.4-5.0) 09/19/18 07:00 RPR Titer Nonreactive (NONREACTIVE) 09/19/18 07:00 AOx3 no acute distress, full ROM ambulating in the unit withdrawal sx increase PO fluids continue detox continue to monitor Assessment: 09/20/18 14:20 Vital Signs Temperature 98.7 F 09/20/18 11:21 Pulse Rate 93 H 09/20/18 11:21 Respiratory Rate 18 09/20/18 11:21 Blood Pressure 138/81 09/20/18 11:21 O2 Sat by Pulse Oximetry (%) Laboratory Last Values WBC 4.6 K/mm3 (4.0-10.0) 09/19/18 07:00 RBC 3.90 M/mm3 (4.00-5.60) L 09/19/18 07:00 Hgb 11.2 GM/dL (11.7-16.9) L 09/19/18 07:00 Hct 34.3 % (35.4-49) L 09/19/18 07:00 MCV 88.0 fl (80-96) 09/19/18 07:00 MCH 28.7 pg (25.7-33.7) 09/19/18 07:00 MCHC 32.6 g/dl (32.0-35.9) 09/19/18 07:00 RDW 15.7 % (11.9-15.9) 09/19/18 07:00 Plt Count 223 K/MM3 (134-434) 09/19/18 07:00 MPV 8.3 fl (7.5-11.1) 09/19/18 07:00 Sodium 140 mmol/L (136-145) 09/19/18 07:00 Potassium 4.0 mmol/L (3.5-5.1) 09/19/18 07:00 Chloride 103 mmol/L (98-107) 09/19/18 07:00 Carbon Dioxide 31 mmol/L (21-32) 09/19/18 07:00 Anion Gap 6 MMOL/L (8-16) L 09/19/18 07:00 BUN 20 mg/dL (7-18) H 09/19/18 07:00 Creatinine 0.9 mg/dL (0.55-1.3) 09/19/18 07:00 Creat Clearance w eGFR 92.54 (>60) 09/19/18 07:00 Random Glucose 85 mg/dL (74-106) 09/19/18 07:00 Calcium 8.7 mg/dL (8.5-10.1) 09/19/18 07:00 Total Bilirubin 0.5 mg/dL (0.2-1) 09/19/18 07:00 AST 62 U/L (15-37) H 09/19/18 07:00 ALT 63 U/L (13-61) H 09/19/18 07:00 Alkaline Phosphatase 105 U/L (45-117) 09/19/18 07:00 Total Protein 6.9 g/dl (6.4-8.2) 09/19/18 07:00 Albumin 3.4 g/dl (3.4-5.0) 09/19/18 07:00 RPR Titer Nonreactive (NONREACTIVE) 09/19/18 07:00 AOx3 + dental wiring no adventitious breath sounds + anxious full ROM ambulating in the unit withdrawal sx s/p fracture jaw ibuprofen prn anbesol prn increase po fluids continue detox continue to monitor
[2018-09-20] MEDS: NIFEdipine E.R. 30 MG TABLET (FP) PO SCH (12:40)
[2018-09-20] MEDS: THIAMINE HCL 100 MG TABLET (FP) PO SCH (22:36)
[2018-09-20] MEDS: MELATONIN 5 MG TABLETS PO PRN (22:37)
[2018-09-20] MEDS: chlordiazePOXIDE HCL 10 MG CAPSULE PO SCH (22:37)
[2018-09-20] MEDS ORDERED: chlordiazePOXIDE HCL 10 MG CAPSULE PO PRN (23:00)
[2018-09-21] MEDS: chlordiazePOXIDE HCL 10 MG CAPSULE PO SCH ×2 (05:55→10:27)
[2018-09-21] MEDS: BACITRACIN 0.9 GM PACKET TP SCH (10:27)
[2018-09-21] MEDS: PRENATAL VITAMINS W/ FOLIC ACID TABLET (FP) PO SCH (10:27)
[2018-09-21] MEDS: NICOTINE 7 MG/24 HOURS TOPICAL PATCH TD SCH (10:27)
[2018-09-21] MEDS: NIFEdipine E.R. 30 MG TABLET (FP) PO SCH (10:27)
[2018-09-21 14:36] VITALS: BP 131/89; PULSE 80; TEMP 96.4
--- NOTE | 2018-09-21 16:02 | DS ---
[facility] Detox Discharge Summary Admission Date: 09/18/18 Discharge Date: 09/21/18 - History Present History: Alcohol Dependence, Cocaine Dependence Additional Comments: Pt states feels well now, requested to go home. Pt is medically stable to be discharged at this time. Pertinent Past History: H/O htn, depression, alcohol/cocaine abuse - Physical Exam Results Vital Signs: Vital Signs Temperature 96.4 F L 09/21/18 14:35 Pulse Rate 80 09/21/18 14:35 Respiratory Rate 18 09/21/18 14:35 Blood Pressure 131/89 09/21/18 14:35 O2 Sat by Pulse Oximetry (%) Laboratory Last Values WBC 4.6 K/mm3 (4.0-10.0) 09/19/18 07:00 RBC 3.90 M/mm3 (4.00-5.60) L 09/19/18 07:00 Hgb 11.2 GM/dL (11.7-16.9) L 09/19/18 07:00 Hct 34.3 % (35.4-49) L 09/19/18 07:00 MCV 88.0 fl (80-96) 09/19/18 07:00 MCH 28.7 pg (25.7-33.7) 09/19/18 07:00 MCHC 32.6 g/dl (32.0-35.9) 09/19/18 07:00 RDW 15.7 % (11.9-15.9) 09/19/18 07:00 Plt Count 223 K/MM3 (134-434) 09/19/18 07:00 MPV 8.3 fl (7.5-11.1) 09/19/18 07:00 Sodium 140 mmol/L (136-145) 09/19/18 07:00 Potassium 4.0 mmol/L (3.5-5.1) 09/19/18 07:00 Chloride 103 mmol/L (98-107) 09/19/18 07:00 Carbon Dioxide 31 mmol/L (21-32) 09/19/18 07:00 Anion Gap 6 MMOL/L (8-16) L 09/19/18 07:00 BUN 20 mg/dL (7-18) H 09/19/18 07:00 Creatinine 0.9 mg/dL (0.55-1.3) 09/19/18 07:00 Creat Clearance w eGFR 92.54 (>60) 09/19/18 07:00 Random Glucose 85 mg/dL (74-106) 09/19/18 07:00 Calcium 8.7 mg/dL (8.5-10.1) 09/19/18 07:00 Total Bilirubin 0.5 mg/dL (0.2-1) 09/19/18 07:00 AST 62 U/L (15-37) H 09/19/18 07:00 ALT 63 U/L (13-61) H 09/19/18 07:00 Alkaline Phosphatase 105 U/L (45-117) 09/19/18 07:00 Total Protein 6.9 g/dl (6.4-8.2) 09/19/18 07:00 Albumin 3.4 g/dl (3.4-5.0) 09/19/18 07:00 RPR Titer Nonreactive (NONREACTIVE) 09/19/18 07:00 Labs reviewed Pertinent Admission Physical Exam Findings: Withdrawal symptoms - Treatment Hospital Course: Detox Protocol Followed, Detoxed Safely, Responded well, Discharged Condition Good - Medication Discharge Medications: Ambulatory Orders Nifedipine [Afeditab Cr] 30 mg PO DAILY 02/11/17 - Diagnosis (1) Alcohol dependence with uncomplicated withdrawal Current Visit: Yes Status: Acute (2) Cocaine dependence, uncomplicated Current Visit: Yes Status: Chronic (3) Depressive disorder Current Visit: Yes Status: Chronic (4) HTN (hypertension) Current Visit: Yes Status: Chronic Qualifiers: Hypertension type: unspecified Qualified Code(s): I10 - Essential (primary ) hypertension - AMA Did Patient Leave Against Medical Advice: No
[2018-09-21] MEDS ORDERED: chlordiazePOXIDE HCL 10 MG CAPSULE PO SCH (23:00)
== END 2018-09-21 16:08 | disposition home or self-care (01) | DRG 774 ==
LOC: YASAS 16:02 → Y6N 19:28
PROVIDERS: ADMIT Surgery; ATTEND Surgery
PROC: HZ2ZZZZ Detoxification Services for Substance Abuse Treatment (ICD-10-PCS; principal; 2018-09-18)
DX: F10.230 Alcohol dependence with withdrawal, uncomplicated (principal); F14.20 Cocaine dependence, uncomplicated; F17.210 Nicotine dependence, cigarettes, uncomplicated; F33.9 Major depressive disorder, recurrent, unspecified; F19.24 Other psychoactive substance dependence with psychoactive substance-induced mood disorder; I10 Essential (primary) hypertension; R76.11 Nonspecific reaction to tuberculin skin test without active tuberculosis; D64.9 Anemia, unspecified; R00.0 Tachycardia, unspecified; Z86.79 Personal history of other diseases of the circulatory system
CPT/HCPCS: 36415; 80053; 85027; 86593; 93005; 93010; J0475

== ENCOUNTER 2018-11-23 11:01 | Inpatient (IN) | payer OTHER ==
[2018-11-23 12:56] VITALS: BMI 29.1
--- NOTE | 2018-11-23 14:04 | HP ---
CIWA Score Nausea/Vomitin Muscle Tremors: 4-Moderate,w/Arms Extend Anxiety: 4-Mod. Anxious/Guarded Agitation: 1-Slight > Activity Paroxysmal Sweats: No Perspiration Orientation: 0-Oriented Tacttile Disturbances: 1-Very Mild Itch/Numbness Auditory Disturbances: 0-None Visual Disturbances: 0-None Headache: 2-Mild CIWA-Ar Total Score: 15 - Admission Criteria [facility]ASAS Guidelines: Admission for Medically Managed Detox: Requires at least one of the followin. CIWA greater than 12 2. Seizures within the past 24 hours 3. Delirium tremens within the past 24 hours 4. Hallucinations within the past 24 hours 5. Acute intervention needed for co occurring medical disorder 6. Acute intervention needed for co occurring psychiatric disorder 7. Severe withdrawal that cannot be handled at a lower level of care (continued vomiting, continued diarrhea, abnormal vital signs) requiring intravenous medication and/or fluids 8. Patient presents the following: CIWA greater than 12 Admission Criteria Met: Admission criteria met Admission ROS BHS - HPI Chief Complaint: I want to get cleaned up - I can't stop on my own = I get too sick, too shaky so then I just go get a drink Allergies/Adverse Reactions: Allergies Allergy/AdvReac Type Severity Reaction Status Date / Time No Known Allergies Allergy Verified 11/23/18 12:42 History of Present Illness: 43 yo gentleman here for detox from alcohol - this is one of several admissions for detox- he has a history of black outs, no seizure. States he had been on naltrexone but it ran out. He states longest time sober was in [id number]. He wsa here for detox in September 2018 and then at [facility] for detox 10/06/18. 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 Exam Limitations: Clinical Condition - Ebola screening Have you traveled outside of the country in the last 21 days: No Have you had contact with anyone from an Ebola affected area: No Do you have a fever: No - Review of Systems Constitutional: Loss of Appetite, Changes in sleep, Weakness EENT: reports: No Symptoms Reported Respiratory: reports: No Symptoms reported Cardiac: reports: No Symptoms Reported GI: reports: Poor Appetite, Indigestion, Abdominal cramping : reports: Frequency Musculoskeletal: reports: Muscle Pain Integumentary: reports: Dryness Neuro: reports: Headache, Tremors Endocrine: reports: No Symptoms Reported Hematology: reports: No Symptoms Reported Psychiatric: reports: Judgement Intact, Mood/Affect Appropiate, Orientated x3, Anxious Other Systems: Reviewed and Negative Patient History - Patient Medical History Hx Anemia: No Hx Asthma: No Hx Chronic Obstructive Pulmonary Disease (COPD): No Hx Cancer: No Hx Cardiac Disorders: No Hx Congestive Heart Failure: No Hx Hypertension: No (denies - no meds) Hx Hypercholesterolemia: No Hx Pacemaker: No HX Cerebrovascular Accident: No Hx Seizures: No Hx Dementia: No Hx Diabetes: No Hx Gastrointestinal Disorders: No Hx Liver Disease: Yes (elevated liver function test from etoh) Hx Genitourinary Disorders: No Hx Sexually Transmitted Disorders: No Hx Renal Disease (ESRD): No Hx Thyroid Disease: No Hx Human Immunodeficiency Virus (HIV): No Hx Hepatitis C: No Hx Depression: Yes (by hx ? years ago cocaine psychosis - no meds, states he's not depressed) Hx Suicide Attempt: No (denies) Hx Bipolar Disorder: No Hx Schizophrenia: No - Patient Surgical History Past Surgical History: Yes Hx Neurologic Surgery: Yes (brain aneurysm sx.2012 - cranioplasty) Hx Cataract Extraction: No Hx Cardiac Surgery: No Hx Lung Surgery: No Hx Breast Surgery: No Hx Breast Biopsy: No Hx Abdominal Surgery: No Hx Appendectomy: No Hx Cholecystectomy: No Hx Genitourinary Surgery: No Hx Section: No Hx Orthopedic Surgery: Yes (right ACL repair 2016) Anesthesia Reaction: No - PPD History Previous Implant?: Yes Documented Results: Positive w/o proof (states treated with [facility] for several months years ago [facility]) Implanted On Prior R Admission?: No Date: 07/18/18 (cxr negative) Results: normal PPD to be Administered?: No - Reproductive History Patient is a Female of Child Bearing Age (11 -55 yrs old): No - Smoking Cessation Smoking history: Current every day smoker Have you smoked in the past 12 months: Yes Aproximately how many cigarettes per day: 3 Hx Chewing Tobacco Use: No Initiated information on smoking cessation: Yes 'Breaking Loose' booklet given: 11/23/18 (give on floor) - Substance & Tx. History Hx Alcohol Use: Yes Hx Substance Use: Yes Substance Use Type: Alcohol, Cocaine, Marijuana Hx Substance Use Treatment: Yes (detox, rehab) - Substances abused Alcohol Substance route: Oral Frequency: Daily Amount used: 3 PINTS OF VODKA Age of first use: 18 Date of last use: 11/22/18 Crack Substance route: Smoking Frequency: Daily Amount used: $50 Age of first use: 33 Date of last use: 11/22/18 PCP Substance route: Smoking Frequency: 1-2 times per week Amount used: 2 10 dollar bags Age of first use: 37 Date of last use: 11/22/18 Marijuana/Hashish Frequency: 1-2 times per week Amount used: 1 blunt Age of first use: 18 Date of last use: 11/18/18 Family Disease History - Family Disease History Family Disease History: Diabetes: Mother (living, HTN,Breast), Heart Disease: Father (living, CVA), Mother, CA: Mother, Other: Father, Sister (two - living - healthy), Son (one - age 10 ), Daughter (one age 16) Admission Physical Exam [facility] - Vital Signs Vital Signs: Vital Signs - 24 hr 11/23/18 11/23/18 12:45 13:50 Temperature 97 F L 97 F L Pulse Rate 81 81 Respiratory 20 20 Rate Blood Pressure 124/70 124/70 - Physical General Appearance: Yes: Nourished, Appropriately Dressed, Moderate Distress, Tremorous, Anxious HEENTM: Yes: EOMI, Hearing grossly Normal, Normocephalic, Normal Voice, Pharynx Normal, Other (tongue coated) Respiratory: Yes: Normal Breath Sounds, No Respiratory Distress Neck: Yes: No masses,lesions,Nodules Breast: Yes: Breast Exam Deferred Cardiology: Yes: Regular Rhythm, Regular Rate Abdominal: Yes: Soft Genitourinary: Yes: Frequency Back: Yes: Normal Inspection Musculoskeletal: Yes: full range of Motion, Gait Steady, Muscle Pain Extremities: Yes: Normal Inspection, Normal Range of Motion, Non-Tender Neurological: Yes: Fully Oriented, Alert, Normal Mood/Affect, Normal Response Integumentary: Yes: Normal Color, Dry, Warm Lymphatic: Yes: Within Normal Limits - Diagnostic (1) Alcohol dependence with uncomplicated withdrawal Current Visit: Yes Status: Acute (2) Cannabis dependence, uncomplicated Current Visit: Yes Status: Chronic (3) Cocaine dependence, uncomplicated Current Visit: Yes Status: Chronic (4) HTN (hypertension) Current Visit: Yes Status: Chronic Qualifiers: Hypertension type: essential hypertension Qualified Code(s): I10 - Essential (primary) hypertension (5) Nicotine dependence Current Visit: Yes Status: Chronic Qualifiers: Nicotine product type: cigarettes Substance use status: uncomplicated Qualified Code(s): F17.210 - Nicotine dependence, cigarettes, uncomplicated (6) PPD positive, treated Current Visit: Yes Status: Chronic Comment: cxr 07/18/2018 Cleared for Admission S - Detox or Rehab [facility] Level of Care: Medically Managed Detox Regimen/Protocol: Librium Breathalyzer - Breathalyzer Breathalyzer: 0 Urine Drug Screen - Test Device Lot number: [id number] Expiration date: 08/01/20 - Control Is test valid?: Yes - Results Drug screen NEGATIVE: No Urine drug screen results: THC-Marijuana, HEMA-Cocaine, BZO-Benzodiazepines Inpatient Rehab Admission - Rehab Decision to Admit Inpatient rehab admission?: No
[2018-11-23] MEDS ORDERED: MENTHOL/PHENOL 1 EACH UD MM PRN (14:13)
[2018-11-23] MEDS ORDERED: hydrOXYzine PAMOATE 25 MG CAPSULE (FP) PO PRN (14:13)
[2018-11-23] MEDS ORDERED: chlordiazePOXIDE HCL 25 MG CAPSULE PO PRN (14:13)
[2018-11-23] MEDS ORDERED: chlordiazePOXIDE HCL 25 MG CAPSULE PO ONE (14:13)
[2018-11-23] MEDS ORDERED: MAGNESIUM CITRATE 300 ML BOTTLE PO PRN (14:13)
[2018-11-23] MEDS ORDERED: ACETAMINOPHEN 325 MG TABLET (FP) PO PRN (14:13)
[2018-11-23] MEDS ORDERED: MAG HYDROX/AL HYDROX/SIMETH 30 ML UNIT-DOSE CUP PO PRN (14:13)
[2018-11-23] MEDS ORDERED: MELATONIN 5 MG TABLETS PO PRN (14:13)
[2018-11-23] MEDS ORDERED: MAGNESIUM HYDROX 2400MG/30ML ORAL SUSPENSION 30 ML CUP PO PRN (14:13)
[2018-11-23] MEDS ORDERED: BISMUTH SUBSALICYLATE 524 MG/30 ML UD PO PRN (14:13)
[2018-11-23] MEDS: METHOCARBAMOL 500 MG TABLET PO PRN ×2 (17:39→22:02)
[2018-11-23] MEDS: chlordiazePOXIDE HCL 25 MG CAPSULE PO SCH ×2 (17:39→22:01)
[2018-11-23] MEDS: THIAMINE HCL 100 MG TABLET (FP) PO SCH (22:01)
[2018-11-24] MEDS: IBUPROFEN 400 MG TABLET (FP) PO PRN ×3 (00:10→22:06)
[2018-11-24] MEDS: chlordiazePOXIDE HCL 25 MG CAPSULE PO SCH ×4 (05:55→22:06)
[2018-11-24] MEDS: METHOCARBAMOL 500 MG TABLET PO PRN (05:56)
[2018-11-24] MEDS: PRENATAL VITAMINS W/ FOLIC ACID TABLET (FP) PO SCH (10:26)
[2018-11-24 10:44] LABS: HEMATOCRIT 35.3 % (35.4-49); HEMOGLOBIN 11.4 GM/dL (11.7-16.9); MCH 28.4 pg (25.7-33.7); MCHC 32.2 g/dl (32.0-35.9); MEAN CELL VOLUME 88.2 fl (80-96); MEAN PLT VOLUME 8.3 fl (7.5-11.1); PLATELET COUNT 331 K/MM3 (134-434); RDW 16.9 % (11.9-15.9)
[2018-11-24 10:50] LABS: ALBUMIN 3.8 g/dl (3.4-5.0); BILIRUBIN,TOTAL 0.4 mg/dL (0.2-1); BLOOD UREA NITROGEN 22.5 mg/dL (7-18); POTASSIUM 4.4 mmol/L (3.5-5.1); TOT PROT 7.4 g/dl (6.4-8.2)
--- NOTE | 2018-11-24 11:16 | PN ---
S CIWA - CIWA Score Nausea/Vomitin Muscle Tremors: 3 Anxiety: 2 Agitation: 2 Paroxysmal Sweats: 1-Minimal Palms Moist Orientation: 0-Oriented Tacttile Disturbances: 0-None Auditory Disturbances: 0-None Visual Disturbances: 1-Very Mild Sensitivity Headache: 1-Very Mild CIWA-Ar Total Score: 12 BHS Progress Note (SOAP) Subjective: poor sleep sweating shaky Objective: Laboratory Tests 11/24/18 11/24/18 08:00 08:00 WBC 5.0 RBC 4.00 Hgb 11.4 L Hct 35.3 L MCV 88.2 MCH 28.4 MCHC 32.2 RDW 16.9 H Plt Count 331 D MPV 8.3 Sodium 140 Potassium 4.4 Chloride 104 Carbon Dioxide 30 Anion Gap 6 L BUN 22.5 H Creatinine 1.0 Est GFR (CKD-EPI)AfAm 106.36 Est GFR (CKD-EPI)NonAf 91.77 Random Glucose 73 L Calcium 9.0 Total Bilirubin 0.4 AST 29 ALT 43 Alkaline Phosphatase 103 Total Protein 7.4 Albumin 3.8 Vital Signs - 24 hr 11/23/18 11/23/18 11/23/18 12:45 13:50 15:29 Temperature 97 F L 97 F L 77 F L Pulse Rate 81 81 77 Respiratory 20 20 18 Rate Blood Pressure 124/70 124/70 122/83 11/23/18 11/23/18 11/24/18 17:27 21:47 00:28 Temperature 96.9 F L 98.2 F Pulse Rate 75 83 Respiratory 18 18 18 Rate Blood Pressure 121/68 115/68 11/24/18 11/24/18 11/24/18 03:30 06:22 09:10 Temperature 97 F L 97 F L Pulse Rate 80 701 H Respiratory 18 18 18 Rate Blood Pressure 123/75 134/87 alert ambulating appropriate Assessment: 11/24/18 11:16 acute withdrawal Plan: continue detox protocol, hydration and monitoring
[2018-11-24] MEDS: THIAMINE HCL 100 MG TABLET (FP) PO SCH (22:05)
[2018-11-25] MEDS: chlordiazePOXIDE HCL 25 MG CAPSULE PO SCH ×2 (06:04→11:15)
[2018-11-25 06:07] VITALS: BP 123/79; PULSE 64; TEMP 97
[2018-11-25] MEDS: PRENATAL VITAMINS W/ FOLIC ACID TABLET (FP) PO SCH (11:15)
[2018-11-25] MEDS ORDERED: chlordiazePOXIDE HCL 10 MG CAPSULE PO SCH (17:00)
[2018-11-25] MEDS ORDERED: chlordiazePOXIDE HCL 10 MG CAPSULE PO PRN (17:00)
--- NOTE | 2018-11-25 18:34 | DS ---
[facility] Detox Discharge Summary Admission Date: 11/23/18 Discharge Date: 11/25/18 - History Present History: Alcohol Dependence, Cannabis Dependence, Cocaine Dependence Additional Comments: PATIENT DID NOT WISH TO REMAIN TO COMPLETE DETOX REGIMEN. 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 THUS, MEDICAL ASSESSMENT COULD BNOT BE DONE PRIOR TO PATIENT LEAVING DETOX UNIT. Pertinent Past History: Depression, History of Elevated Liver Function Tests, Nicotine Dependence, History Of Positive PPD, HTN. - Physical Exam Results Vital Signs: Vital Signs Temperature 97 F L 11/25/18 06:06 Pulse Rate 64 11/25/18 06:06 Respiratory Rate 18 11/25/18 06:06 Blood Pressure 123/79 11/25/18 06:06 O2 Sat by Pulse Oximetry (%) Pertinent Admission Physical Exam Findings: WITHDRAWAL SYMPTOMS. Laboratory Tests 11/24/18 11/24/18 11/24/18 08:00 08:00 08:00 WBC 5.0 RBC 4.00 Hgb 11.4 L Hct 35.3 L MCV 88.2 MCH 28.4 MCHC 32.2 RDW 16.9 H Plt Count 331 D MPV 8.3 Sodium 140 Potassium 4.4 Chloride 104 Carbon Dioxide 30 Anion Gap 6 L BUN 22.5 H Creatinine 1.0 Est GFR (CKD-EPI)AfAm 106.36 Est GFR (CKD-EPI)NonAf 91.77 Random Glucose 73 L Calcium 9.0 Total Bilirubin 0.4 AST 29 ALT 43 Alkaline Phosphatase 103 Total Protein 7.4 Albumin 3.8 RPR Titer Nonreactive LABS NOTED. - Treatment Hospital Course: Detox Protocol Followed, Detoxed Safely - Medication Discharge Medications: Ambulatory Orders NK [No Known Home Medication] 11/23/18 - Diagnosis (1) Alcohol dependence with uncomplicated withdrawal Status: Acute (2) Cannabis dependence, uncomplicated Status: Chronic (3) Cocaine dependence, uncomplicated Status: Chronic (4) HTN (hypertension) Status: Chronic Qualifiers: Hypertension type: essential hypertension Qualified Code(s): I10 - Essential (primary) hypertension (5) Nicotine dependence Status: Chronic Qualifiers: Nicotine product type: cigarettes Substance use status: uncomplicated Qualified Code(s): F17.210 - Nicotine dependence, cigarettes, uncomplicated (6) PPD positive Status: Chronic - AMA Did Patient Leave Against Medical Advice: Yes (PATIENT DID NOT WISH TO REMAIBN TO COMPLETE DETOX REGIMEN.)
[2018-11-26] MEDS ORDERED: chlordiazePOXIDE HCL 10 MG CAPSULE PO SCH (17:00)
== END 2018-11-25 08:42 | disposition left against medical advice (07) | DRG 770 ==
LOC: YASAS 11:01 → Y3N 14:22
PROVIDERS: ADMIT Surgery; ATTEND Surgery
PROC: HZ2ZZZZ Detoxification Services for Substance Abuse Treatment (ICD-10-PCS; principal; 2018-11-23)
DX: F10.230 Alcohol dependence with withdrawal, uncomplicated (principal); F14.20 Cocaine dependence, uncomplicated; F12.20 Cannabis dependence, uncomplicated; F17.210 Nicotine dependence, cigarettes, uncomplicated; I10 Essential (primary) hypertension; R76.11 Nonspecific reaction to tuberculin skin test without active tuberculosis; R94.5 Abnormal results of liver function studies; Z86.79 Personal history of other diseases of the circulatory system
CPT/HCPCS: 36415; 80053; 85027; 86593